=== PATIENT | male | born 2005 | race Caucasian/White ===

== ENCOUNTER 2024-03-31 01:02 | Emergency (ER) | payer OTHER, SELFPAY ==
--- NOTE | 2024-03-31 11:48 | RAD REPORT ---
EXAM DESCRIPTION: RAD - Shoulder Right 2 View - 03/31/2024 8:33 am CLINICAL HISTORY: Pt was doing push ups and felt right shoulder pop out of place COMPARISON: Right Shoulder 3 Views 02/22/2017 report without images TECHNIQUE: Right Shoulder 2 Views FINDINGS: No fracture or dislocation. No significant sclerotic/lytic bone lesion. Joint spaces unremarkable. Soft tissues unremarkable. IMPRESSION: Normal Right Shoulder Radiographs. Electronically signed by: Amilcar Mcbride MD 03/31/2024 01:56 AM CDT Due to temporary technical issues with the PACS/Fluency reporting system, reports are being signed by the in house radiologist without review as a courtesy to ensure prompt reporting. The interpreting r adiologist is fully responsible for the content of the report.
--- NOTE | 2024-04-01 01:59 | ER ---
Nurse's Notes [facility] Name: Casper Lowe Age: 18 yrs Sex: Male : 2005 Arrival Date: 03/31/2024 Time: 01:02 Bed 4 Private MD: Diagnosis: Other sprain of right shoulder joint;Right shoulder instability, history of right shoulder dislocation, acute right shoulder sprain Presentation: 03/31 01:10 Chief complaint: Patient states: I was doing pushups on the toilet and I felt my right bm8 shoulder slip out of pocket. Coronavirus screen: At this time, the client does not indicate any symptoms associated with coronavirus-19. Ebola Screen: Patient negative for fever greater than or equal to 101.5 degrees Fahrenheit, and additional compatible Ebola Virus Disease symptoms Patient denies exposure to infectious person. Patient denies travel to an Ebola-affected area in the 21 days before illness onset. No symptoms or risks identified at this time. Initial Sepsis Screen: Does the patient meet any 2 criteria? No. Patient's initial sepsis screen is negative. Does the patient have a suspected source of infection? No. Patient's initial sepsis screen is negative. Risk Assessment: Do you want to hurt yourself or someone else? Patient reports no desire to harm self or others. Onset of symptoms was March 31, 2024 at 00:00. 01:10 Method Of Arrival: Law Enforcement: [place] [employer] bm8 01:10 Acuity: MEGHAN 3 bm8 Triage Assessment: 01:12 General: Appears in no apparent distress. uncomfortable, Behavior is calm, cooperative, bm8 appropriate for age. Pain: Complains of pain in right shoulder Pain radiates to right arm Pain currently is 8 out of 10 on a pain scale. Quality of pain is described as aching, throbbing. EENT: No signs and/or symptoms were reported regarding the EENT system. Neuro: No deficits noted. Level of Consciousness is awake, alert, obeys commands, Oriented to person, place, time, situation, Appropriate for age. Cardiovascular: Denies chest pain, shortness of breath, Capillary refill < 3 seconds Patient's skin is warm and dry. Respiratory: Airway is patent Trachea midline Respiratory effort is even, unlabored, Respiratory pattern is regular, symmetrical. GI: No signs and/or symptoms were reported involving the gastrointestinal system. : No signs and/or symptoms were reported regarding the genitourinary system. Derm: No signs and/or symptoms reported regarding the dermatologic system. Musculoskeletal: Range of motion: limited in right shoulder Tenderness present in right shoulder Reports pain in right shoulder. Historical: - Allergies: 01:12 No Known Allergies; bm8 - Home Meds: 01:12 None [Active]; bm8 - PMHx: 01:12 None; bm8 - PSHx: 01:12 None; bm8 - Immunization history:: Adult Immunizations up to date. - Infectious Disease History:: Denies. - Social history:: Smoking status: unknown. - Family history:: not pertinent. Screenin:14 [facility] ED Fall Risk Assessment (Adult) History of falling in the last 3 months, bm8 including since admission No falls in past 3 months (0 pts) Confusion or Disorientation No (0 pts) Intoxicated or Sedated No (0 pts) Impaired Gait Yes (1 pt) Mobility Assist Device Used No (0 pt) Altered Elimination No (0 pt) Score/Fall Risk Level 3 or more points = High Risk Oriented to surroundings, Maintained a safe environment, Educated pt \T\ family on fall prevention, incl call for assistance when getting out of bed, Assessed \T\ reinforced patient's understanding of fall precautions, Hourly rounding (assess needs \T\ fall precautionary measures) done. Abuse screen: Denies threats or abuse. Nutritional screening: No deficits noted. Tuberculosis screening: No symptoms or risk factors identified. Assessment: 01:14 Reassessment: see triage assessment. bm8 01:47 General: Appears in no apparent distress. comfortable, Behavior is calm, cooperative, bm8 appropriate for age. Pain: Complains of pain in right shoulder Pain currently is 3 out of 10 on a pain scale. Musculoskeletal: Tenderness present in right shoulder Reports pain in right shoulder. Vital Signs: 01:10 BP 117 / 69; Pulse 66; Resp 18; Temp 98.4; Pulse Ox 100% ; Weight 61.23 kg; Height 5 bm8 ft. 9 in. ; Pain 8/10; 01:47 BP 108 / 68; Pulse 56; Resp 16; Temp 98.4; Pulse Ox 100% ; Pain 3/10; bm8 01:10 Body Mass Index 19.94 (61.23 kg, 175.26 cm) bm8 01:10 Pain Scale: Adult bm8 01:47 Pain Scale: Adult bm8 [place] Coma Score: 01:14 Eye Response: spontaneous(4). Motor Response: obeys commands(6). Verbal Response: bm8 oriented(5). Total: 15. 01:47 Eye Response: spontaneous(4). Motor Response: obeys commands(6). Verbal Response: bm8 oriented(5). Total: 15. 07:18 Eye Response: spontaneous(4). Motor Response: obeys commands(6). Verbal Response: sp4 oriented(5). Total: 15. ED Course: 01:02 Patient arrived in ED. ra3 01:04 Juan Luis Mehta MD is Attending Physician. sp4 01:10 Aron Quintero, CHEN is Primary Nurse. bm8 01:11 Triage completed. bm8 01:12 Arm band placed on right wrist. bm8 01:14 Patient has correct armband on for positive identification. Bed in low position. Call bm8 light in reach. Side rails up X2. Adult w/ patient. Security at bedside. Client placed on continuous cardiac and pulse oximetry monitoring. NIBP monitoring applied. Pulse ox on. NIBP on. Noise minimized. Visitors limited. Moved to private room. Warm blanket given. Verbal reassurance given. Head of bed elevated. 01:36 Theodore Adams MD is Referral Physician. sp4 01:47 Provided Education on: post er care. bm8 01:47 No provider procedures requiring assistance completed. Patient did not have IV access bm8 during this emergency room visit. Sling applied to right arm. Administered Medications: :28 Drug: Acetaminophen-Codeine PO (300 mg-30 mg) 2 tabs PO once; RASS on ADMIN: Combtv4, bm8 Very Agttd3, Agttd2, Rstlss1, AlertClm0, Drwsy-1, Lt Sdtn-2, Mod Sdtn-3, Dp Sdtn-4, UnArsble-5 Route: PO; :47 Follow up: Response: No adverse reaction bm8 :28 Drug: Ketorolac IM 60 mg IM once Route: IM; Site: left deltoid; bm8 :47 Follow up: Response: No adverse reaction bm8 01:28 Drug: Methocarbamol PO 1500 mg PO once Route: PO; bm8 01:47 Follow up: Response: No adverse reaction bm8 Medication: 01:14 VIS not applicable for this client. bm8 Outcome: 01:37 Discharge ordered by . sp4 01:47 Discharged to Law Enforcement bm8 01:47 Condition: stable 01:47 Discharge instructions given to patient, hiv nurse, Instructed on discharge instructions, follow up and referral plans. no drinking with medication, no driving heavy equipment, medication usage, safety practices, 01:52 Patient left the ED. bm8 Signatures: Juan Luis Mehta MD MD sp4 Mariah King ra3 Aron Quintero, RN RN bm8
--- NOTE | 2024-04-01 01:59 | EDPHYS ---
Physician Documentation [facility] Name: Casper Lowe Age: 18 yrs Sex: Male : 2005 Arrival Date: 03/31/2024 Time: 01:02 Bed 4 Private MD: ED Physician Juan Luis Mehta HPI: 03/31 01:35 This 18 yrs old White Male presents to ER via Law Enforcement with complaints of sp4 Shoulder Pain. 07:18 18-year-old presents from [facility] with acute right shoulder pain. Patient sp4 reported he developed pain after doing push-ups. Patient reports his shoulder is unstable ever since right shoulder dislocation about 2 years ago. . Historical: - Allergies: 01:12 No Known Allergies; bm8 - Home Meds: 01:12 None [Active]; bm8 - PMHx: 01:12 None; bm8 - PSHx: 01:12 None; bm8 - Immunization history:: Adult Immunizations up to date. - Infectious Disease History:: Denies. - Social history:: Smoking status: unknown. - Family history:: not pertinent. ROS: 07:18 Constitutional: Negative for fever, chills, and weight loss, positive right shoulder sp4 pain 07:18 All other systems are negative, Exam: 07:18 Constitutional: This is a well developed, well nourished patient who is awake, alert, sp4 and in no acute distress. Head/Face: Normocephalic, atraumatic. Eyes: Pupils equal round and reactive to light, extra-ocular motions intact. Lids and lashes normal. Conjunctiva and sclera are not injected. Cornea within normal limits. Periorbital areas with no swelling, redness, or edema. ENT: Nares patent. No nasal discharge, no septal abnormalities noted. Tympanic membranes are normal and external auditory canals are clear. Oropharynx with no redness, swelling, or masses, exudates, or evidence of obstruction, uvula midline. Mucous membranes moist. Neck: Trachea midline, no thyromegaly or masses palpated, and no cervical lymphadenopathy. Supple, full range of motion without nuchal rigidity, or vertebral point tenderness. Chest/axilla: Normal chest wall appearance and motion. Nontender with no deformity. No lesions are appreciated. Cardiovascular: Regular rate and rhythm with a normal S1 and S2. No gallops, murmurs, or rubs. Normal PMI, no JVD. No pulse deficits. Respiratory: Lungs have equal breath sounds bilaterally, clear to auscultation and percussion. No rales, rhonchi or wheezes noted. No increased work of breathing, no retractions or nasal flaring. Abdomen/GI: Soft, with normal bowel sounds. No distension or tympany. No guarding or rebound. No evidence of tenderness throughout. Back: No spinal tenderness. No costovertebral tenderness. Skin: Warm, dry with normal turgor. Normal color with no rashes, no lesions, and no evidence of cellulitis. MS/ Extremity: Pulses equal, no cyanosis. Neurovascular intact. Full, normal range of motion. Neuro: Awake and alert, GCS 15, oriented to person, place, time, and situation. Cranial nerves II-XII grossly intact. Motor strength 5/5 in all extremities. Sensory grossly intact. Psych: Awake, alert, with orientation to person, place and time. Behavior, mood, and affect are within normal limits Vital Signs: 01:10 BP 117 / 69; Pulse 66; Resp 18; Temp 98.4; Pulse Ox 100% ; Weight 61.23 kg; Height 5 bm8 ft. 9 in. ; Pain 8/10; 01:47 BP 108 / 68; Pulse 56; Resp 16; Temp 98.4; Pulse Ox 100% ; Pain 3/10; bm8 01:10 Body Mass Index 19.94 (61.23 kg, 175.26 cm) bm8 01:10 Pain Scale: Adult bm8 01:47 Pain Scale: Adult bm8 [place] Coma Score: 01:14 Eye Response: spontaneous(4). Motor Response: obeys commands(6). Verbal Response: bm8 oriented(5). Total: 15. 01:47 Eye Response: spontaneous(4). Motor Response: obeys commands(6). Verbal Response: bm8 oriented(5). Total: 15. 07:18 Eye Response: spontaneous(4). Motor Response: obeys commands(6). Verbal Response: sp4 oriented(5). Total: 15. MDM: 01:05 Patient medically screened. sp4 07:18 Differential diagnosis: Anterior dislocation with fracture, Anterior dislocation sp4 without fracture, humeral head fracture, glenoid fracture, DJD, tendonitis. Data reviewed: vital signs, nurses notes, radiologic studies, plain films. ED course: EXAM: Shoulder Right 2 View XR Right Shoulder 2 Views HISTORY: pt was doing push ups and felt right shoulder pop out of place COMPARISON: Right Shoulder 3 Views 02/22/2017 report without images TECHNIQUE: Right Shoulder 2 Views FINDINGS: No fracture or dislocation. No significant sclerotic/lytic bone lesion. Joint spaces unremarkable. Soft tissues unremarkable. IMPRESSION: Normal Right Shoulder Radiographs.. ED course: Right shoulder sling was applied and patient advised to wear it for 2 weeks. Advised follow-up with orthopedist in 7 to 10 days.. 03/31 01:04 Order name: Sling; Complete Time: 01:47 sp4 Administered Medications: 01:28 Drug: Acetaminophen-Codeine PO (300 mg-30 mg) 2 tabs PO once; RASS on ADMIN: Combtv4, bm8 Very Agttd3, Agttd2, Rstlss1, AlertClm0, Drwsy-1, Lt Sdtn-2, Mod Sdtn-3, Dp Sdtn-4, UnArsble-5 Route: PO; 01:47 Follow up: Response: No adverse reaction bm8 01:28 Drug: Ketorolac IM 60 mg IM once Route: IM; Site: left deltoid; bm8 01:47 Follow up: Response: No adverse reaction bm8 01:28 Drug: Methocarbamol PO 1500 mg PO once Route: PO; bm8 01:47 Follow up: Response: No adverse reaction bm8 Disposition Summary: 03/31/24 01:37 Discharge Ordered Problem: new sp4 Symptoms: have improved sp4 Condition: Stable sp4 Diagnosis - Other sprain of right shoulder joint sp4 - Right shoulder instability, history of right shoulder dislocation, acute right sp4 shoulder sprain Followup: sp4 - With: Theodore Adams MD - When: 7 - 10 days - Reason: Recheck today's complaints Discharge Instructions: - Discharge Summary Sheet sp4 - Shoulder Sprain sp4 Forms: - Work release form sp4 - Patient Portal Instructions sp4 Prescriptions: - Ibuprofen 800 mg Oral Tablet - take 1 tablet ORAL route every 8 hours As needed take with food; 30 tablet; sp4 Refills: 0, Product Selection Permitted Signatures: Juan Luis Mehta MD MD sp4 Aron Quintero, RN RN bm8
[2024-04-01 02:45] VITALS: BP 108/68; TEMP 98.4; O2SAT 100
== END 2024-03-31 01:52 | disposition home or self-care (01) ==
LOC: ER 01:02
DX: S43.491A Other sprain of right shoulder joint, initial encounter (principal); M25.311 Other instability, right shoulder; M24.811 Other specific joint derangements of right shoulder, not elsewhere classified
CPT/HCPCS: 96372; 99285

== ENCOUNTER 2024-03-31 09:56 | Emergency (ER) | payer OTHER ==
--- NOTE | 2024-03-31 10:37 | RAD REPORT ---
EXAM DESCRIPTION: RAD - Shoulder Right 2 View - 03/31/2024 10:30 am CLINICAL HISTORY: pain COMPARISON: Shoulder Right 2 View dated 03/31/2024 FINDINGS/IMPRESSION: Right shoulder dislocation, presumably anterior-inferior. No fracture identifie d.
--- NOTE | 2024-03-31 11:26 | RAD REPORT ---
EXAM DESCRIPTION: RAD - Shoulder Right 2 View - 03/31/2024 11:13 am CLINICAL HISTORY: reduction COMPARISON: Shoulder Right 2 View dated 03/31/2024 FINDINGS/IMPRESSION: Relocated right shoulder. No fracture identified.
--- NOTE | 2024-03-31 11:30 | EDPHYS ---
Physician Documentation [facility] Name: Casper Lowe Age: 18 yrs Sex: Male : 2005 Arrival Date: 03/31/2024 Time: 09:56 Bed 3 Private MD: ED Physician David Rodriguez HPI: 03/31 10:00 This 18 yrs old Male presents to ER via Unassigned with complaints of Shoulder Pain. ms3 10:00 18-year-old male presents emergency department for right shoulder pain. Patient states ms3 he was seen in the emergency department last night for shoulder dislocation and was asleep when he dislocated his shoulder. Patient denies alleviating factors. Patient is pain is worse with movement of his shoulder. Historical: - Allergies: 10:06 No Known Allergies; ph - PMHx: 10:06 None; ph - Immunization history:: Adult Immunizations unknown. - Infectious Disease History:: Denies. - Social history:: Smoking status: unknown. ROS: 10:00 Constitutional: Negative for fever, and chills. Cardiovascular: Negative for chest ms3 pain, and palpitations. Respiratory: Negative for shortness of breath, cough, wheezing, and pleuritic chest pain, Abdomen/GI: Negative for abdominal pain, nausea, vomiting, diarrhea, and constipation, MS/Extremity: Negative for injury and deformity, 10:00 MS/extremity: Positive for pain, Exam: 10:00 Constitutional: This is a well developed, well nourished patient who is awake, alert, ms3 and in no acute distress. Head/Face: Normocephalic, atraumatic. Chest/axilla: Normal chest wall appearance and motion. Nontender with no deformity. Cardiovascular: Regular rate and rhythm with a normal S1 and S2. No gallops, murmurs, or rubs. Normal PMI, no JVD. No pulse deficits. Respiratory: Lungs have equal breath sounds bilaterally, clear to auscultation and percussion. No rales, rhonchi or wheezes noted. No increased work of breathing, no retractions or nasal flaring. Abdomen/GI: Soft, non-tender, with normal bowel sounds. No distension or tympany. No guarding or rebound. No evidence of tenderness throughout. Skin: Warm, dry with normal turgor. Normal color with no rashes, no lesions, and no evidence of cellulitis. 10:00 Musculoskeletal/extremity: Extremities: noted in the Right shoulder: decreased ROM, pain, tenderness, Vital Signs: 10:04 Pulse 61; Resp 18; Temp 97.5; Pulse Ox 96% ; Weight 68.04 kg; Height 6 ft. 0 in. ; ph 10:07 BP 125 / 82; ph 11:30 BP 118 / 78; Pulse 64; Resp 18; Temp 97.8; Pulse Ox 99% on R/A; ph 10:04 Body Mass Index 20.34 (68.04 kg, 182.88 cm) ph Procedures: 10:48 Reduction: of the right shoulder, using manipulation, supination, Immobilized with ms3 shoulder immobilizer. Patient tolerated well. Post reduction film - reveals normal alignment. MDM: 10:00 Patient medically screened. ms3 10:00 Differential diagnosis: Anterior dislocation without fracture, Posterior dislocation ms3 without fracture, humeral head fracture. 11:29 Data reviewed: vital signs, nurses notes, and as a result, I will discharge patient. ms3 Independent interpretation of the following test(s) in the Emergency Department X-Ray: My interpretation is Right shoulder x-ray image reviewed revealed right shoulder dislocation. Counseling: I had a detailed discussion with the patient and/or guardian regarding the historical points, exam findings, and any diagnostic results supporting the discharge/admit diagnosis, radiology results, the need for outpatient follow up, to return to the emergency department if symptoms worsen or persist or if there are any questions or concerns that arise at home. Special discussion: I discussed with the patient/guardian in detail that at this point there is no indication for admission to the hospital. It is understood, however, that if the symptoms persist or worsen the patient needs to return immediately for re-evaluation. ED course: On supinating patient's right hand and removal of handcuffs with small abduction patient shoulder reduced. Patient's pain Relieved after reduction. Patient to follow-up with orthopedics. Patient placed in shoulder immobilizer. All questions were answered. Return precautions discussed include worsening symptoms, or any other concerns. On reevaluation patient's right upper extremity neurovascular intact, radial pulse 2+/4.. 03/31 10:13 Order name: Shoulder Right 2 View; Complete Time: 10:47 EDMS 03/31 10:48 Order name: Shoulder Right (2 View) XRAY; Complete Time: 11:28 ms3 03/31 10:36 Order name: Shoulder Immobilizer; Complete Time: 12:00 ms3 Administered Medications: 12:00 Drug: Ibuprofen PO 600 mg PO once Route: PO; kc6 12:05 Follow up: Response: No adverse reaction; Medication administered at discharge. ph Disposition Summary: 03/31/24 11:29 Discharge Ordered Notes: Location: Home ms3 Condition: Stable ms3 Diagnosis - Recurrent dislocation, right shoulder ms3 Followup: ms3 - With: Roderick Goode MD - When: 2 - 3 days - Reason: Recheck today's complaints Discharge Instructions: - Discharge Summary Sheet ms3 - Shoulder Dislocation ms3 Forms: - Medication Reconciliation Form ms3 - Antibiotic Education ms3 - Prescription Opioid Use ms3 - Patient Portal Instructions ms3 - Leadership Thank You Letter ms3 Signatures: Dispatcher [employer] EDMarisol Griffin RN David Ann ph, DO DO ms3 Savanah Hatfield RN RN kc6 Corrections: (The following items were deleted from the chart) 10:06 10:06 Shoulder Right 2 View+RAD.RAD.BRZ ordered. EDMS EDMS
--- NOTE | 2024-03-31 11:30 | ER ---
Nurse's Notes [facility] Name: Casper Lowe Age: 18 yrs Sex: Male : 2005 Arrival Date: 03/31/2024 Time: 09:56 Bed 3 Private MD: Diagnosis: Recurrent dislocation, right shoulder Presentation: 03/31 10:04 Chief complaint: Patient states: R shoulder dislocation, was seen in ED last night for ph same complaint, states, " It came back out in my sleep.". Coronavirus screen: Vaccine status: Patient reports receiving the 2nd dose of the covid vaccine. Ebola Screen: No symptoms or risks identified at this time. Initial Sepsis Screen: Does the patient meet any 2 criteria? No. Patient's initial sepsis screen is negative. Does the patient have a suspected source of infection? No. Patient's initial sepsis screen is negative. Risk Assessment: Do you want to hurt yourself or someone else? Patient reports no desire to harm self or others. Onset of symptoms was March 31, 2024. 10:04 Method Of Arrival: Ambulatory ph 10:04 Acuity: MEGHAN 3 ph Triage Assessment: 10:07 General: Appears in no apparent distress. Behavior is calm, cooperative. Pain: ph Complains of pain in anterior aspect of right shoulder and posterior aspect of right shoulder. Historical: - Allergies: 10:06 No Known Allergies; ph - PMHx: 10:06 None; ph - Immunization history:: Adult Immunizations unknown. - Infectious Disease History:: Denies. - Social history:: Smoking status: unknown. Screenin:08 [facility] ED Fall Risk Assessment (Adult) History of falling in the last 3 months, ph including since admission No falls in past 3 months (0 pts) Confusion or Disorientation No (0 pts) Intoxicated or Sedated No (0 pts) Impaired Gait No (0 pts) Mobility Assist Device Used No (0 pt) Altered Elimination No (0 pt) Score/Fall Risk Level 0 - 2 = Low Risk Oriented to surroundings, Maintained a safe environment, Hourly rounding (assess needs \\T\\ fall precautionary measures) done. Abuse screen: Denies threats or abuse. Denies injuries from another. Nutritional screening: No deficits noted. Tuberculosis screening: No symptoms or risk factors identified. Assessment: 10:30 General: Appears in no apparent distress. uncomfortable, Behavior is calm, cooperative. ph Pain: Complains of pain in right shoulder. Neuro: Level of Consciousness is awake, alert, obeys commands, Oriented to person, place, time, situation. Cardiovascular: Capillary refill < 3 seconds in bilateral fingers Patient's skin is warm and dry. Respiratory: Airway is patent Respiratory effort is even, unlabored. Derm: Skin is pink, warm \\T\\ dry. Musculoskeletal: Range of motion: limited in right shoulder Bony deformity noted of right shoulder. 10:40 Reassessment: R shoulder reduced w/out intervention after wrist shackles were removed ph for imaging. 11:35 Reassessment: D/C pending shoulder immobilizer, awaiting from materials. ph Vital Signs: 10:04 Pulse 61; Resp 18; Temp 97.5; Pulse Ox 96% ; Weight 68.04 kg; Height 6 ft. 0 in. ; ph 10:07 BP 125 / 82; ph 11:30 BP 118 / 78; Pulse 64; Resp 18; Temp 97.8; Pulse Ox 99% on R/A; ph 10:04 Body Mass Index 20.34 (68.04 kg, 182.88 cm) ph ED Course: 10:00 Patient arrived in ED. aa5 10:00 David Rodriguez DO is Attending Physician. ms3 10:06 Triage completed. ph 10:07 Arm band placed on Patient placed in an exam room, on a stretcher, on pulse oximetry. ph 10:08 Patient has correct armband on for positive identification. Bed in low position. Call ph light in reach. Side rails up X2. Pulse ox on. NIBP on. 10:32 Shoulder Right 2 View In Process Unspecified. EDMS 10:41 Marisol Pagan, RN is Primary Nurse. ph 11:15 Shoulder Right (2 View) XRAY In Process Unspecified. EDMS 11:28 Roderick Goode MD is Referral Physician. ms3 12:00 Clavicle/Shoulder strap applied on right clavicle/shoulder. kc6 12:00 No provider procedures requiring assistance completed. Patient did not have IV access kc6 during this emergency room visit. Administered Medications: 12:00 Drug: Ibuprofen PO 600 mg PO once Route: PO; kc6 12:05 Follow up: Response: No adverse reaction; Medication administered at discharge. ph Medication: 10:08 VIS not applicable for this client. ph Outcome: 11:29 Discharge ordered by MD. davies 12:01 Discharged to Law Enforcement kc6 12:01 Condition: good 12:01 Discharge instructions given to patient, Instructed on discharge instructions, follow up and referral plans. Demonstrated understanding of instructions, follow-up care, 12:01 Patient left the ED. kc6 Signatures: Dispatcher [employer] EDJennifer Hinson RN RN aa5 Marisol Pagan RN RN David Rodriguez, DO ms3 Savanah Hatfield, RN RN kc6
[2024-03-31] MEDS ORDERED: IBUPROFEN 200 MG TAB PO ONE (11:58)
[2024-03-31 12:30] VITALS: BP 125/82; TEMP 97.5; O2SAT 96
== END 2024-03-31 12:01 | disposition home or self-care (01) ==
LOC: ER 09:56
PROC: 0RSJXZZ Reposition Right Shoulder Joint, External Approach (ICD-10-PCS; principal; 2024-03-31)
DX: M24.411 Recurrent dislocation, right shoulder (principal)
CPT/HCPCS: 99284